=== PATIENT | female | born 1990 | race Caucasian/White ===

== ENCOUNTER 2018-12-16 10:26 | Outpatient (CLI) | payer OTHER ==
[~2018-12-16] VITALS: Ht 160 cm; Wt 128.6 kg
[2018-12-16] MEDS ORDERED: MISOPROSTOL 25 MCG TABLET VG PRN ×3 (10:30→14:15)
[2018-12-16] MEDS ORDERED: FENTANYL PF 100 MCG/2ML IV PRN ×3 (10:30→14:15)
[2018-12-16] MEDS ORDERED: OXYTOCIN 30U/ 0.9% NaCL 500ML 500 ML IV PRN ×6 (10:30→14:15)
[2018-12-16] MEDS ORDERED: FENTANYL PF 100 MCG/2ML IVPush PRN ×3 (10:30→14:15)
[2018-12-16] MEDS ORDERED: D5%-LACTATED RINGERS 1,000 ML IV SCH ×3 (10:30→14:15)
[2018-12-16] MEDS ORDERED: LACTATED RINGERS 1,000 ML IV SCH ×3 (10:30→14:15)
[2018-12-16] MEDS ORDERED: ONDANSETRON 2MG/ML, 2ML IVPush PRN ×3 (10:30→14:15)
[2018-12-16] MEDS ORDERED: OXYTOCIN 30U/ 0.9% NaCL 500ML 500 ML IV ONE ×3 (10:30)
[2018-12-16 11:07] LABS: BASOPHILS # (AUTO) 0.02 x10^3/uL (0-0.1); BASOPHILS % (AUTO) 0 % (0-1); EOSINOPHILS # (AUTO) 0.06 x10^3/uL (0-0.4); EOSINOPHILS % (AUTO) 1 % (1-7); LYMPHOCYTES % (AUTO) 17 % (22-44); MD NO; MEAN CORPUSCULAR HEMOGLOBIN 26.9 pg (27.0-34.8); MEAN CORPUSCULAR HGB CONC 32.2 g/dL (32.4-35.8); MEAN CORPUSCULAR VOLUME 83.5 fL (80-100); MONOCYTES # (AUTO) 0.71 x10^3/uL (0.2-0.8); MONOCYTES % (AUTO) 7 % (2-9); NEUTROPHILS # (AUTO) 7.39 x10^3/uL (1.8-6.8); NEUTROPHILS % (AUTO) 75 % (42-75); PLATELET COUNT 389 x10^3/uL (130-400); RED BLOOD COUNT 4.19 x10^6/uL (3.82-5.3); RED CELL DISTRIBUTION WIDTH 14.7 % (9.6-15.2)
[2018-12-16 11:16] LABS: ALANINE AMINOTRANSFERASE 27 U/L (12-78); ALBUMIN 2.8 g/dL (3.4-5.0); ANION GAP 9 mmol/L (5-15); CALCIUM 9.1 mg/dL (8.5-10.1); CHLORIDE 108 mmol/L (98-107)
[2018-12-16 11:19] LABS: ALKALINE PHOSPHATASE 107 U/L (45-117); BILIRUBIN,TOTAL 0.2 mg/dL (0.2-1.0); CREATININE 0.65 mg/dL (0.55-1.02); TOTAL PROTEIN 7.5 g/dL (6.4-8.2)
[2018-12-16 11:22] LABS: BILIRUBIN, DIRECT < 0.1 mg/dL (0.1-0.2)
[2018-12-16] MEDS ORDERED: PLEASE ENTER HEIGHT AND WEIGHT MC SCH (11:30)
[2018-12-16] MEDS ORDERED: PLEASE ENTER ALLERGIES MC SCH (11:30)
[2018-12-16 11:35] LABS: MICROSCOPIC INDICATED
[2018-12-16 12:49] VITALS: BP 132/78
== END 2018-12-16 14:08 | disposition home or self-care (01) ==
LOC: LDOP 10:26 → LDIP 10:26 → UNDOADMIN 10:26 → UNDODISIN 12:41 → LDOP 14:08 → EDSTATUS 01-04 14:04
PROVIDERS: ATTEND Obstetrics & Gynecology
DX: O16.3 Unspecified maternal hypertension, third trimester (principal); Z3A.37 37 weeks gestation of pregnancy
CPT/HCPCS: 36415; 59025; 80053; 81001; 82248; 82570; 84156; 84550; 85025; 86850; 86900; 99201; G0463

== ENCOUNTER 2018-12-28 07:04 | Inpatient (IN) | payer OTHER ==
[~2018-12-28] VITALS: Ht 160 cm; Wt 130.0 kg
[2018-12-28 21:30] VITALS: BP 141/86
[2018-12-28] MEDS ORDERED: NEWBORN KIT ONE (21:34)
[2018-12-28] MEDS ORDERED: OXYTOCIN 30U/ 0.9% NaCL 500ML 500 ML IV ONE (21:41)
[2018-12-28] MEDS: D5%-LACTATED RINGERS 1,000 ML IV SCH (21:41)
[2018-12-28] MEDS: LACTATED RINGERS 1,000 ML IV SCH (21:41)
[2018-12-28] MEDS ORDERED: MISOPROSTOL 25 MCG TABLET ONE (21:45)
[2018-12-28] MEDS: MISOPROSTOL 25 MCG TABLET VG PRN (21:54)
[2018-12-28] MEDS ORDERED: SODIUM CITRATE/CITRIC ACID 15 ML UDC PO PRN (22:00)
[2018-12-28] MEDS ORDERED: TERBUTALINE 1 MG/ML, 1ML IVPush PRN (22:00)
[2018-12-28] MEDS ORDERED: ONDANSETRON 2MG/ML, 2ML IVPush PRN (22:00)
[2018-12-28] MEDS ORDERED: METOCLOPRAMIDE 5 MG/ML, 2ML IVPush PRN (22:00)
[2018-12-28] MEDS ORDERED: ASPI-430 PO (22:08)
[2018-12-28] MEDS ORDERED: PREN-3 PO (22:08)
[2018-12-28 22:40] LABS: BASOPHILS # (AUTO) 0.02 x10^3/uL (0-0.1); BASOPHILS % (AUTO) 0 % (0-1); EOSINOPHILS # (AUTO) 0.07 x10^3/uL (0-0.4); EOSINOPHILS % (AUTO) 1 % (1-7); LYMPHOCYTES # (AUTO) 1.54 x10^3/uL (1-3.4); LYMPHOCYTES % (AUTO) 17 % (22-44); MD NO; MEAN CORPUSCULAR HEMOGLOBIN 27.4 pg (27.0-34.8); MEAN CORPUSCULAR HGB CONC 33.1 g/dL (32.4-35.8); MEAN CORPUSCULAR VOLUME 82.8 fL (80-100); MEAN PLATELET VOLUME 6.8 fL (7.4-10.4); MONOCYTES # (AUTO) 0.79 x10^3/uL (0.2-0.8); MONOCYTES % (AUTO) 9 % (2-9); NEUTROPHILS # (AUTO) 6.74 x10^3/uL (1.8-6.8); NEUTROPHILS % (AUTO) 74 % (42-75); PLATELET COUNT 352 x10^3/uL (130-400); RED BLOOD COUNT 4.05 x10^6/uL (3.82-5.3); RED CELL DISTRIBUTION WIDTH 15.4 % (9.6-15.2)
[2018-12-29] MEDS ORDERED: MISOPROSTOL 25 MCG TABLET ONE ×4 (01:53→14:08)
[2018-12-29] MEDS: MISOPROSTOL 25 MCG TABLET VG PRN ×4 (02:03→14:11)
[2018-12-29] MEDS ORDERED: OXYTOCIN 30U/ 0.9% NaCL 500ML 500 ML ONE (05:40)
[2018-12-29] MEDS: D5%-LACTATED RINGERS 1,000 ML IV SCH (05:41)
[2018-12-29] MEDS: LACTATED RINGERS 1,000 ML IV SCH ×2 (05:41→23:35)
[2018-12-29] MEDS ORDERED: MISOPROSTOL 200 MCG TABLET ONE (06:19)
[2018-12-29] MEDS ORDERED: LIDOCAINE 1%, 20ML ONE (06:19)
[2018-12-29] MEDS ORDERED: FENTANYL PF 100 MCG/2ML ONE ×3 (17:40→20:17)
[2018-12-29] MEDS: FENTANYL PF 100 MCG/2ML IVPush PRN ×3 (17:42→20:21)
[2018-12-29] MEDS ORDERED: FENTANYL/BUPIV./NS/PF 250 ML EPIDCONT SCH ×2 (20:08→21:36)
[2018-12-29] MEDS ORDERED: EPHEDRINE 50 MG/ML, 1ML IVPush PRN ×2 (20:30→22:00)
[2018-12-29] MEDS ORDERED: LACTATED RINGERS 1,000 ML IVBOLUS PRN ×2 (20:30→22:00)
[2018-12-29] MEDS ORDERED: LACTATED RINGERS 1,000 ML IV SCH (21:36)
[2018-12-29] MEDS ORDERED: NALOXONE 0.4 MG/ML, 1ML IVPush PRN (22:00)
[2018-12-29] MEDS ORDERED: LIDOCAINE/PF 1.5%-EPI 1:200K, 30ML ONE (23:54)
[2018-12-30] MEDS: LACTATED RINGERS 1,000 ML IV SCH ×5 (04:08→23:38)
[2018-12-30] MEDS ORDERED: FENTANYL PF 500 MCG, BUPIVACAINE/PF 0.5%, 30ML 62.5 ML in SODIUM CHLORIDE 0.9% 177.5 ML EPIDCONT SCH (18:30)
[2018-12-30 19:40] VITALS: BP 129/82
[2018-12-30] MEDS ORDERED: SODIUM CITRATE/CITRIC ACID 15 ML UDC ONE (19:44)
[2018-12-30] MEDS ORDERED: METOCLOPRAMIDE 5 MG/ML, 2ML ONE (19:44)
[2018-12-30] MEDS: D5%-LACTATED RINGERS 1,000 ML IV SCH (19:56)
[2018-12-30] MEDS ORDERED: ACETAMINOPHEN 325 MG TABLET ONE (20:12)
[2018-12-31] MEDS: LACTATED RINGERS 1,000 ML IV SCH ×3 (04:08→20:00)
[2018-12-31] MEDS ORDERED: LIDOCAINE/MPF 2%-EPI 1:200K, 20 ML ONE (05:19)
[2018-12-31] MEDS ORDERED: morphine SULFATE/PF 0.5 MG/ML, 10ML ONE (05:29)
[2018-12-31] MEDS ORDERED: OXYTOCIN 10 UNITS/ML, 1ML ONE (05:33)
[2018-12-31] MEDS ORDERED: ONDANSETRON 2MG/ML, 2ML ONE (05:33)
[2018-12-31] MEDS ORDERED: DEXAMETHASONE 4 MG/ML, 1ML ONE (05:33)
[2018-12-31] MEDS ORDERED: FENTANYL PF 100 MCG/2ML ONE (05:48)
[2018-12-31] MEDS ORDERED: WATER-INJECTION,STERILE 10 ML IV ONE (05:49)
[2018-12-31] MEDS ORDERED: MIDAZOLAM 1 MG/ML, 2ML ONE (05:49)
[2018-12-31] MEDS ORDERED: CEFAZOLIN 1,000 MG ONE (05:49)
[2018-12-31] MEDS ORDERED: LACTATED RINGERS 1,000 ML IV SCH (06:18)
[2018-12-31] MEDS ORDERED: ACETAMINOPHEN 325 MG TABLET PO PRN ×2 (06:30)
[2018-12-31] MEDS ORDERED: MISOPROSTOL 200 MCG TABLET PR PRN (06:30)
[2018-12-31] MEDS ORDERED: ONDANSETRON 2MG/ML, 2ML IV PRN (06:30)
[2018-12-31] MEDS ORDERED: morphine SULFATE 10 MG/ML, 1ML IM PRN (06:30)
[2018-12-31] MEDS ORDERED: OXYcodone 5 MG/5 ML ORAL.SOL UDC ONE (07:09)
[2018-12-31] MEDS ORDERED: OXYcodone 5 MG/5 ML ORAL.SOL UDC PO PRN (07:30)
[2018-12-31] MEDS: OXYTOCIN 30U/ 0.9% NaCL 500ML 500 ML IV SCH ×2 (08:04→20:00)
[2018-12-31 08:45] VITALS: BP 111/70
[2018-12-31] MEDS: PRENATAL VIT/IRON/FA 1 EACH TABLET PO SCH (09:00)
[2018-12-31 12:30] VITALS: BP 112/74
[2018-12-31] MEDS: OXYcodone/APAP 5/325MG TABLET PO PRN ×3 (13:21→21:16)
[2018-12-31 14:22] LABS: MEAN CORPUSCULAR HEMOGLOBIN 27.8 pg (27.0-34.8); MEAN CORPUSCULAR HGB CONC 33.2 g/dL (32.4-35.8); MEAN CORPUSCULAR VOLUME 83.8 fL (80-100); MEAN PLATELET VOLUME 6.7 fL (7.4-10.4); PLATELET COUNT 328 x10^3/uL (130-400); RED BLOOD COUNT 3.79 x10^6/uL (3.82-5.3); RED CELL DISTRIBUTION WIDTH 15.3 % (9.6-15.2)
[2018-12-31 14:41] LABS: BASOPHILS # (AUTO) 0.01 x10^3/uL (0-0.1); BASOPHILS % (AUTO) 0 % (0-1); EOSINOPHILS # (AUTO) 0.01 x10^3/uL (0-0.4); EOSINOPHILS % (AUTO) 0 % (1-7); LYMPHOCYTES # (AUTO) 1.33 x10^3/uL (1-3.4); LYMPHOCYTES % (AUTO) 8 % (22-44); MD SCAN; MONOCYTES # (AUTO) 0.96 x10^3/uL (0.2-0.8); MONOCYTES % (AUTO) 6 % (2-9); NEUTROPHILS # (AUTO) 13.84 x10^3/uL (1.8-6.8); NEUTROPHILS % (AUTO) 86 % (42-75)
[2018-12-31 16:20] VITALS: BP 136/86
[2018-12-31 20:00] VITALS: BP 127/79
[2018-12-31] MEDS: DOCUSATE 100 MG CAPSULE PO PRN (21:16)
[2019-01-01 00:40] VITALS: BP 111/78
[2019-01-01] MEDS: IBUPROFEN 600 MG TABLET PO PRN ×3 (02:00→15:33)
[2019-01-01] MEDS: OXYcodone/APAP 5/325MG TABLET PO PRN ×5 (02:00→20:47)
[2019-01-01] MEDS: LACTATED RINGERS 1,000 ML IV SCH ×3 (02:18→22:18)
[2019-01-01] MEDS: OXYTOCIN 30U/ 0.9% NaCL 500ML 500 ML IV SCH ×3 (02:18→22:18)
[2019-01-01 04:15] VITALS: BP 116/74
[2019-01-01 08:07] VITALS: BP 119/83
[2019-01-01] MEDS: PRENATAL VIT/IRON/FA 1 EACH TABLET PO SCH (08:13)
[2019-01-01] MEDS: DOCUSATE 100 MG CAPSULE PO PRN (08:13)
[2019-01-01] MEDS ORDERED: LACTATED RINGERS 1,000 ML IV SCH (20:09)
[2019-01-01] MEDS ORDERED: FENTANYL/BUPIV./NS/PF 250 ML EPIDCONT SCH (20:09)
[2019-01-01 20:30] VITALS: BP 121/82
[2019-01-01] MEDS ORDERED: LACTATED RINGERS 1,000 ML IVBOLUS PRN (20:30)
[2019-01-01] MEDS ORDERED: EPHEDRINE 50 MG/ML, 1ML IVPush PRN (20:30)
[2019-01-01] MEDS ORDERED: FENTANYL PF 500 MCG, BUPIVACAINE/PF 0.5%, 30ML 62.5 ML in SODIUM CHLORIDE 0.9% 177.5 ML EPIDCONT SCH (20:30)
[2019-01-02] MEDS: OXYcodone/APAP 5/325MG TABLET PO PRN ×5 (02:15→14:34)
[2019-01-02] MEDS: IBUPROFEN 600 MG TABLET PO PRN ×3 (02:15→14:34)
[2019-01-02 08:00] VITALS: BP 131/81
[2019-01-02] MEDS: DOCUSATE 100 MG CAPSULE PO PRN (08:09)
[2019-01-02] MEDS: PRENATAL VIT/IRON/FA 1 EACH TABLET PO SCH (08:09)
[2019-01-02] MEDS: LACTATED RINGERS 1,000 ML IV SCH (08:18)
[2019-01-02] MEDS: OXYTOCIN 30U/ 0.9% NaCL 500ML 500 ML IV SCH (08:18)
[2019-01-02] MEDS ORDERED: OXYC-302 PO (12:10)
[2019-01-02] MEDS ORDERED: IBUP-1222 PO (12:10)
== END 2019-01-02 15:24 | disposition home or self-care (01) | DRG 788 ==
LOC: LDIP 21:08 → 2NW 12-31 08:33
PROVIDERS: ADMIT Obstetrics & Gynecology; ATTEND Obstetrics & Gynecology
PROC: 3E033VJ Introduction of Other Hormone into Peripheral Vein, Percutaneous Approach (ICD-10-PCS; 2018-12-28)
PROC: 0U7C7ZZ Dilation of Cervix, Via Natural or Artificial Opening (ICD-10-PCS; 2018-12-29)
PROC: 10907ZC Drainage of Amniotic Fluid, Therapeutic from Products of Conception, Via Natural or Artificial Opening (ICD-10-PCS; 2018-12-30)
PROC: 10H07YZ Insertion of Other Device into Products of Conception, Via Natural or Artificial Opening (ICD-10-PCS; 2018-12-30)
PROC: 10D00Z1 Extraction of Products of Conception, Low, Open Approach (ICD-10-PCS; principal; 2018-12-31)
DX: O13.4 Gestational [pregnancy-induced] hypertension without significant proteinuria, complicating childbirth (principal); O62.2 Other uterine inertia; O33.9 Maternal care for disproportion, unspecified; Z37.0 Single live birth; Z3A.39 39 weeks gestation of pregnancy; Z88.0 Allergy status to penicillin; O99.214 Obesity complicating childbirth; E66.01 Morbid (severe) obesity due to excess calories
CPT/HCPCS: 36415; J7121; S0020; 85025; 86850; 86900; G0378; J0690; J1100; J2250; J2274; J2405; J3010; J3490; J2590; J2765; J7050; J7120

== ENCOUNTER 2019-06-23 18:50 | Emergency (ER) | payer OTHER ==
[~2019-06-23] VITALS: Ht 160 cm; Wt 116.0 kg
[~2019-06-23 18:50] MED LIST: ASPI-430 PO; IBUP-1222 PO; OXYC-302 PO; PREN-3 PO
--- NOTE | 2019-06-23 20:55 | NUR ---
PT RESTING PATIENTLY. SPOUSE AT BEDSIDE.
[2019-06-23 21:04] VITALS: BP 133/76
== END 2019-06-23 21:06 | disposition home or self-care (01) ==
LOC: ED 19:52
DX: O9A.211 Injury, poisoning and certain other consequences of external causes complicating pregnancy, first trimester (principal); S86.912A Strain of unspecified muscle(s) and tendon(s) at lower leg level, left leg, initial encounter; W18.30XA Fall on same level, unspecified, initial encounter; Y93.89 Activity, other specified; Y92.009 Unspecified place in unspecified non-institutional (private) residence as the place of occurrence of the external cause; Y99.8 Other external cause status
CPT/HCPCS: 99283